=== PATIENT | male | born 1990 | race Caucasian/White ===

== ENCOUNTER 2017-01-10 11:37 | Emergency (ER) | payer SELFPAY ==
[2017-01-10] MEDS ORDERED: IPRATROPIUM/ALBUTEROL 3 ML VIAL NEB ONE (12:01)
[2017-01-10 12:03] VITALS: TEMP 97.4
[2017-01-10] MEDS ORDERED: AZITHROMYCIN 250 MG TAB PO ONE (12:11)
[2017-01-10] MEDS ORDERED: cefTRIAXone SODIUM 1 GM VIAL IM ONE (12:11)
[2017-01-10] MEDS ORDERED: predniSONE 20 MG TAB PO ONE (12:11)
--- NOTE | 2017-01-10 12:17 | RAD ---
Study: Frontal and Lateral Views of the Chest. Indication: cough 1 week Comparison: November 29, 2010. IMPRESSION: Heart size normal. Lungs clear. Prior ORIF of the right clavicle. Electronically signed by: Martín Street MD 01/10/2017 12:16 PM CDT
[2017-01-10] MEDS ORDERED: LIDOCAINE 1% 10 ML VIAL INJ ONE (12:29)
--- NOTE | 2017-01-10 12:57 | ED.PDOC ---
History of Present Illness - General Chief Complaint: Respiratory Problem Stated Complaint: cough Time Seen by Provider: 01/10/17 11:39 Source: patient Exam Limitations: no limitations - History of Present Illness Initial Comments: the patient is a 26-year-old male presenting to the emergency room secondary to cough and mild shortness of breath for the last week. He does smoke and has smoked for quite a long time. No history of asthma. No fever. Cough is mildly productive. No chest pain. No syncope. No palpitations or swelling. Timing/Duration: 1 week Severity: mild Improving Factors: nothing Worsening Factors: nothing Associated Symptoms: cough Allergies/Adverse Reactions: Allergies NO KNOWN ALLERGY Allergy (Verified 01/10/17 12:03) Home Medications: Ambulatory Orders Azithromycin 500 mg PO DAILY #5 tab 01/10/17 Review of Systems - Review of Systems Constitutional: States: no symptoms reported EENTM: States: nose congestion - mild Respiratory: States: cough Cardiology: States: no symptoms reported Gastrointestinal/Abdominal: States: no symptoms reported Genitourinary: States: no symptoms reported Musculoskeletal: States: no symptoms reported Skin: States: no symptoms reported Neurological: States: no symptoms reported Endocrine: States: no symptoms reported All other Systems: No Change from Baseline Past Medical History (General) - Patient Medical History Hx Seizures: No Hx Stroke: No Hx Dementia: No Hx Asthma: No Hx of COPD: No Hx Cardiac Disorders: No Hx Congestive Heart Failure: No Hx Pacemaker: No Hx Hypertension: No Hx Thyroid Disease: No Hx Diabetes: No Hx Gastroesophageal Reflux: No Hx Renal Disease: No Hx Cancer: No Hx of HIV: No Hx Hepatitis C: No Hx MRSA: No Surgical History: other - Vaccination History Hx Tetanus, Diphtheria Vaccination: No Hx Influenza Vaccination: No Hx Pneumococcal Vaccination: No - Social History Hx Tobacco Use: No Hx Chewing Tobacco Use: Yes Hx Alcohol Use: No Hx Substance Use: No Hx Substance Use Treatment: No Hx Depression: No Hx Physical Abuse: No Hx Emotional Abuse: No Hx Suspected Abuse: No - Activities of Daily Living Hospice Agency (if applicable):: None - Female History Patient : No Family Medical History - Family History Father Family History: No Known Physical Exam - Physical Exam General Appearance: Alert, Comfortable, No apparent distress Eye Exam: bilateral normal Ears, Nose, Throat: hearing grossly normal, normal pharynx, nasal congestion Neck: full range of motion, supple Respiratory: no respiratory distress, no accessory muscle use, rhonchi - ild scattered Cardiovascular/Chest: normal peripheral pulses, regular rate, rhythm, no edema Peripheral Pulses: radial,right: 2+, radial,left: 2+ Rectal Exam: deferred Extremity: normal range of motion, non-tender, normal inspection, no pedal edema , normal capillary refill 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 The patient was given a shot of Rocephin and one oral dose of prednisone. He is going to be placed on azithromycin for 5 days. He needs to stop smoking for at least the next few weeks in order to allow this to clear. No evidence of overt pneumonia on the chest x-ray. ER warnings are given for any acute worsening. Departure - Departure Clinical Impression: Bronchitis, acute Qualifiers: Bronchitis organism: unspecified organism Qualified Code(s): J20.9 - Acute bronchitis, unspecified Disposition: Discharge to Home or Self Care Condition: Fair Departure Forms: ED Discharge - Pt. Copy, Patient Portal Self Enrollment Instructions: DI for Acute Bronchitis Diet: regular diet Activity: increase activity as tolerated Prescriptions: Azithromycin 500 mg PO DAILY #5 tab Home Medications: Ambulatory Orders Azithromycin 500 mg PO DAILY #5 tab 01/10/17 Additional Instructions: the patient is a 26-year-old male that appears to have a mild bronchitis. The patient was given a shot of Rocephin and one oral dose of prednisone. He is going to be placed on azithromycin for 5 days. He needs to stop smoking for at least the next few weeks in order to allow this to clear. No evidence of overt pneumonia on the chest x-ray. ER warnings are given for any acute worsening.
[2017-01-10 13:19] VITALS: BP 113/78; O2SAT 98
== END 2017-01-10 13:10 | disposition home or self-care (01) ==
LOC: ER 11:37
DX: J20.9 Acute bronchitis, unspecified (principal)
CPT/HCPCS: 71020; 94640; J0696; J7512; J7620; Q0144

== ENCOUNTER 2018-12-19 20:32 | Emergency (ER) | payer SELFPAY ==
[2018-12-19 20:51] VITALS: BP 131/89; TEMP 97.1; O2SAT 98
[2018-12-19] MEDS: ACETAMINOPHEN 500 MG TAB PO ONE (21:54)
== END 2018-12-19 20:50 | disposition left against medical advice (07) ==
LOC: ER 20:32
DX: M25.512 Pain in left shoulder (principal); Z53.21 Procedure and treatment not carried out due to patient leaving prior to being seen by health care provider